=== PATIENT | male | born 1955 | race Caucasian/White ===

== ENCOUNTER 2017-12-15 17:14 | Inpatient (IN) | payer OTHER ==
[~2017-12-15] VITALS: Ht 170.2 cm; Wt 99.8 kg
[~2017-12-15 17:14] MED LIST: BENADRYL ALLERG25 M2 PO; IBUPROFEN600 M1 PO; LEVOTHYROXINE125 MCG PO; LISINOPRIL20 M1 PO; PEPCID20 M1 PO; PREDNISONE20 M1 PO; WELCHOL3.75 GM PO
--- NOTE | 2017-12-15 17:47 | ED NEURO DEFICIT/STROKE ---
History of Present Illness General Chief Complaint: Neuro Symptoms/ Deficit Stated Complaint: NUMBNESS ON RT SIDE OF FACE Source: patient, family, old records Exam Limitations: no limitations Vital Signs & Intake/Output Vital Signs & Intake/Output Vital Signs Date Time Temp Pulse Resp B/P B/P Pulse O2 O2 Flow FiO2 Mean Ox Delivery Rate 12/15 2023 98.0 56 18 157/77 98 Room Air 12/15 1902 58 16 142/88 95 Room Air 12/15 1821 98.4 65 16 163/86 96 Room Air 12/15 1819 Room Air 12/15 1729 97.2 72 18 190/78 98 Room Air Allergies Coded Allergies: NO KNOWN ALLERGIES (05/14/11) Per ER nurse Zohra. -- Giselle 05/06/11 Reconcile Medications Cholecalciferol (Vitamin D3) (Vitamin D) (Unknown Strength) CAPSULE (Unknown Dose) PO DAILY SUPPLEMENT (Reported) Colesevelam HCl (Welchol) 3.75 GRAM POWD.PACK 1 PAC PO DAILY CHOLESTEROL ( Reported) mix with water, or juice Levothyroxine Sodium 125 MCG TABLET 1 TAB PO DAILY AC THYROID (Reported) Lisinopril 20 MG TABLET 1 TAB PO DAILY BP (Reported) [place]-3 Fatty Acids ([place]-3) (Unknown Strength) CAPSULE (Unknown Dose) PO DAILY SUPPLEMENT (Reported) Tamsulosin HCl 0.4 MG CAP.ER.24H 1 CAP PO DAILY PROSTATE (Reported) Ubidecarenone (Co Q-10) (Unknown Strength) CAPSULE (Unknown Dose) PO DAILY SUPPLEMENT (Reported) Triage Note: 62 YEAR OLD MALE STATES THAT LAST PM HE NOTICED THAT HE HAD SOME NUMBNESS IN THE L SIDE OF HIS FACE AND THEN HE STARTED WITH UNABLE TO CLOSE HIS R EYE, PT NOTED WITH R SIDE FACIAL DROOP, CLEAR SPEECH, EQUAL BILATERAL HAND GRASP . PT AMBULATES WITH STEADY GAIT. ALSO STATES THAT HE HAS HAD A STOMACH ACHE ALL DAY. PT VOMITTED UP JUICE WHILE AT TRIAGE AND STATES THAT THE PAIN WENT AWAY. Triage Nurses Notes Reviewed? yes HPI: 62M PMH HTN, HLD, T2DM, no history of afib presenting with right facial droop, inability to full close right eye, left facial numbness, and ataxia falling off to the right since last night. Symptoms were noticed by patient's mother's visiting nurse today and sent to ED. Denies headache, confusion, altered mental status, extremity weakness/numbness, dysphagia. Ate today without difficulty. No history or family history of stroke. No personal history of CVD. Past History Travel History Traveled to [place] past 21 day No Medical History Any Pertinent Medical History? see below for history Neurological: NONE EENT: NONE Cardiovascular: hypertension, hyperlipidemia Respiratory: NONE Gastrointestinal: NONE Hepatic: NONE Renal: NONE Musculoskeletal: NONE Psychiatric: NONE Endocrine: hypothyroidism Blood Disorders: NONE Cancer(s): NONE BATCH DUMPER/Reproductive: NONE Surgical History Surgical History: non-contributory Psychosocial History What is your primary language Estonian Tobacco Use: Never used ETOH Use: denies use Illicit Drug Use: denies illicit drug use Family History Hx Contributory? No Review of Systems Review of Systems Constitutional: Reports: no symptoms. EENTM: Reports: no symptoms. Respiratory: Reports: no symptoms. Cardiovascular: Reports: no symptoms. GI: Reports: no symptoms. Genitourinary: Reports: no symptoms. Musculoskeletal: Reports: no symptoms. Skin: Reports: no symptoms. Neurological/Psychological: Reports: no symptoms. Hematologic/Endocrine: Reports: no symptoms. Immunologic/Allergic: Reports: no symptoms. All Other Systems: Reviewed and Negative Physical Exam Physical Exam General Appearance: well developed/nourished, no apparent distress Head: atraumatic, normal appearance Eyes: Right: other (inability to close, lacrimatio). Bilateral: PERRL, EOMI. Ears, Nose, Throat: normal ENT inspection, moist mucous membrane, hearing grossly normal Neck: normal inspection, supple, full range of motion Respiratory: normal breath sounds, chest non-tender, no respiratory distress Cardiovascular: regular rate/rhythm Gastrointestinal: soft, non-tender Back: normal inspection, normal range of motion Extremities: normal range of motion Psychiatric: awake, alert, oriented x 3 Cranial Nerves: normal hearing, normal speech, PERRL, right facial droop, decreased sensation left face Coordination/Gait: normal finger to nose, Positive Romberg's sign Motor/Sensory: no motor/sensory deficits Reflexes: 2+: knee (R), knee (L). Skin: intact, normal color, warm/dry Core Measures CVA/TIA Diagnosis: Yes NIH Stroke Scale NIH Stroke Scale Response Value LOC Questions answers both correctly 0 LOC Commands obeys both correctly 0 Best Gaze normal 0 Visual Malin no visual loss 0 Facial Paresis complete 3 Motor Arm - Left no drift 0 Motor Arm - Right no drift 0 Motor Leg - Left no drift 0 Motor Leg - Right no drift 0 Limb Ataxia present in one limb 1 Sensory partial loss 1 Best Language no aphasia 0 Dysarthria mild/mod slurring words 1 Extinction and Inattention no neglect 0 Total 6 Date Last Known Well: 12/14/17 Time Last Known Well: 2199 Symptom Start Date: 12/14/17 Symptom Start Time: 2199 Reason tPA not ordered Medical Contraindication Swallow Evaluation Pass Swallow eval date 12/15/17 Swallow eval time 1817 Sepsis Present: No Sepsis Focused Exam Completed? No Progress Differential Diagnosis: acute glaucoma, Nielson's Palsy, drug intoxication, electrolyte imbalance, encephalitis, hypoglycemia, intracranial Hem., intracranial mass/tumor, meningitis, migraine HOLDEN, seizure disorder, stroke, subarachnoid Hem., vertebrobasilar insuff. Plan of Care: Orders Procedure Date/time Status TROPONIN LEVEL 12/15 1745 Complete COMPREHENSIVE METABOLIC PANEL 12/15 1745 Complete CBC WITHOUT DIFFERENTIAL 12/15 1745 Complete EKG 12/15 1745 Active Laboratory Tests 12/15/17 175: Anion Gap 13, Estimated GFR > 60, BUN/Creatinine Ratio 18.9, Glucose 100 H, Calcium 9.4, Total Bilirubin 0.5, AST 39, ALT 54, Alkaline Phosphatase 63, Troponin I < 0.01, Total Protein 7.3, Albumin 4.5, Globulin 2.8, Albumin/ Globulin Ratio 1.6, CBC w Diff NO MAN DIFF REQ, RBC 4.86, MCV 96.8 H, MCH 31.5 H, MCHC 32.5 L, RDW 14.9 H, MPV 10.3, Gran % 71.6, Lymphocytes % 20.2 L, Monocytes % 6.2, Eosinophils % 1.7, Basophils % 0.3, Absolute Granulocytes 7.3 H, Absolute Lymphocytes 2.1, Absolute Monocytes 0.6, Absolute Eosinophils 0.2, Absolute Basophils 0 Diagnostic Imaging: Viewed by Me: CT Scan. Discussed w/RAD: CT Scan. Radiology Impression: PATIENT: ABHIJEET GROVES PRESENT AGE: 62 PATIENT ACCOUNT NO: [id number] : 56 LOCATION: [facility] ORDERING PHYSICIAN: Loree Simmons MD SERVICE DATE: 12/15/17-1745 EXAM TYPE : CAT - CT HEAD ANGIOGRAM; CT NECK ANGIOGRAM EXAMINATION: CTA HEAD AND CTA NECK WITH CONTRAST. CLINICAL INFORMATION: Right facial droop. COMPARISON: CT brain performed at 5:41 PM. TECHNIQUE: Following intravenous administration of 100 mL Optiray 320, CTA neck and brain was obtained. Multiple within sagittal and coronal and 3-D reconstructions of neck and brain were obtained. DLP 465. FINDINGS: CTA NECK: The thoracic aorta is of normal caliber without any aneurysmal dilatation. Visualized pulmonary artery appears normal caliber as well. There is normal branching of thoracic arch into right brachiocephalic, left common and left subclavian arteries which are widely patent. Mild atherosclerotic calcification seen at the origin of these branches but no narrowing noted. The right common carotid artery is widely patent. There is mild atherosclerotic calcified plaque at the origin of right common carotid artery but widely patent. Carotid bulb, right internal and external carotid arteries are patent throughout the neck. The left common carotid artery, and the bifurcation appears widely patent. There is atherosclerotic calcification left carotid bulb and proximal ICA without significant stenosis. The left internal carotid artery is widely patent in the neck. Both vertebral arteries are codominant and patent at the origin and throughout the course in the neck. CTA BRAIN: Both vertebral arteries merge into basilar artery which appears normal caliber. The basilar artery terminates in symmetrical posterior cerebral artery. The superior cerebellar arteries are widely patent. There is a single left posterior inferior cerebellar artery which appears patent. Anteriorly both internal carotid arteries are patent through the petrous, cavernous and supraclinoid segments and bifurcates normally into anterior and middle cerebral arteries. They appear symmetrical. Both middle cerebral arteries bifurcate into anterior and middle temporal branches. There is no atherosclerotic narrowing, thrombosis or asymmetry in the vascular filling. The peripheral capillary filling appears symmetrical and normal. No avascular zone is seen. There is no evidence of aneurysm or AV malformation. CT NECK: Visualized lung apices are clear. No abnormality seen in the superior mediastinum. The central trachea is widely patent. There is a subtle hypodensity or artifact seen in the right mid thyroid lobe. Otherwise the thyroid glands are symmetrical. Visualized bilateral submandibular and parotid glands are symmetrical. Small shotty lymph nodes are seen in the neck. No abnormal mass seen. Both jugular veins are nonopacified but appear codominant. There is degenerative arthritic changes throughout cervical spine with loss of disc height C3-C4 through C6-C7 disc levels. No maxillofacial or nasal bony abnormality seen. There is a polyp or retention cyst right maxillary sinus. Rest of the paranasal sinuses are clear. There is right mastoidectomy changes with soft tissue thickening. Mild opacified remaining right mastoid sinuses seen. The left mastoid sinus is clear. CT BRAIN: There is no enhancing mass or mass effect. No edema seen. No midline shift. The lateral ventricles are symmetrical and normal. IMPRESSION: Unremarkable CTA neck and CTA brain. Right mastoidectomy changes. There is a moderate soft tissue density in the right mastoid sinus likely recurrent inflammatory change or postop which could attribute to right facial weakness or droop. Correlate clinically and surgical history. Moderate size polyp or retention cyst right maxillary sinus. No enhancing mass in the brain or or neck or abnormal lymphadenopathy in the neck DICTATED BY: Martin Bruce MD DATE/TIME DICTATED:12/15/172013 RAPID EXTRACTOR OPERATOR:DAVID DATE/TIME TRANSCRIBED:12/15/172013 Initial ED EKG: normal QRS complex, normal sinus rhythm, no ST T wave changes Departure Departure Disposition: HOME OR SELF CARE Condition: Stable Clinical Impression Primary Impression: Acute CVA (cerebrovascular accident) Referrals: Darryl Pope MD (PCP/Family) Departure Forms: Customer Survey General Discharge Information Admission Note Spoke With: Alesha Berrios MD Documentation of Exam: Documentation of any treatments & extenuating circumstances including Concerns Regarding Discharge (functional status, medication knowledge or non-compliance, living conditions, etc.) that warrant an admission rather than observation: acute onset right facial droop and ataxia consistent with acute CVA, will admit for telemetry monitoring, neurology consult, echocardiogram, carotid doppler, MRI.
[2017-12-15 18:03] LABS: ABSOLUTE BASOPHIL COUNT 0 /CUMM (0.0-0.2); ABSOLUTE EOSINOPHIL COUNT 0.2 /CUMM (0.0-0.7); ABSOLUTE GRANULOCYTE CT 7.3 /CUMM (1.4-6.5); ABSOLUTE LYMPH COUNT 2.1 /CUMM (1.2-3.4); ABSOLUTE MONOCYTE COUNT 0.6 /CUMM (0.10-0.60); BASOPHIL % 0.3 % (0.0-2.0); EOSINOPHIL % 1.7 % (0-5); GRANULOCYTE % 71.6 % (42.2-75.2); MEAN CORPUSCULAR HGB 31.5 PG (27.0-31.0); MEAN CORPUSCULAR HGB CONC 32.5 G/DL (33.0-37.0); MEAN CORPUSCULAR VOLUME 96.8 FL (80.0-94.0); MEAN PLATELET VOLUME 10.3 FL (7.4-10.4); PLATELET COUNT 181 /CUMM (130-400); RBC DISTRIBUTION WIDTH 14.9 % (11.5-14.5); RED BLOOD CELL CT 4.86 /CUMM (4.70-6.10); WHITE BLOOD CELL COUNT 10.3 /CUMM (4.8-10.8)
--- NOTE | 2017-12-15 18:10 | CT SCAN REPORT ---
EXAMINATION: CT HEAD WITHOUT CONTRAST CLINICAL INFORMATION: Right-sided facial droop. COMPARISON: None TECHNIQUE: Contiguous axial imaging was performed from the skull base to vertex without intravenous administration of contrast. DLP: 620 mGy-cm FINDINGS: There is no evidence of acute intracranial hemorrhage or territorial infarction. No abnormal mass effect or midline shift is seen. Woods to white matter differentiation is well preserved. No extra-axial fluid collections are identified. The ventricles are normal in size. There is no abnormal attenuation within the brain parenchyma. The osseous structures and soft tissues are normal. There is a right mastoidectomy changes with soft tissue density likely postop. No fluid is seen in the right middle ear. The left mastoid sinus and rest of the paranasal sinuses are well-aerated. IMPRESSION: No acute intracranial process seen.
[2017-12-15] MEDS ORDERED: VITAMIN D2000 UNIT PO (18:13)
[2017-12-15] MEDS ORDERED: OMEGA-31000 M1 PO (18:13)
[2017-12-15] MEDS ORDERED: CO Q-10200 MG PO (18:14)
[2017-12-15] MEDS ORDERED: TAMSULOSIN HCL0.4 M1 PO (18:14)
--- NOTE | 2017-12-15 20:38 | CT SCAN REPORT ---
EXAMINATION: CTA HEAD AND CTA NECK WITH CONTRAST. CLINICAL INFORMATION: Right facial droop. COMPARISON: CT brain 12/15/2017 performed at 5:41 PM. TECHNIQUE: Following intravenous administration of 100 mL Optiray 320, CTA neck and brain was obtained. Multiple within sagittal and coronal and 3-D reconstructions of neck and brain were obtained. DLP 465. FINDINGS: CTA NECK: The thoracic aorta is of normal caliber without any aneurysmal dilatation. Visualized pulmonary artery appears normal caliber as well. There is normal branching of thoracic arch into right brachiocephalic, left common and left subclavian arteries which are widely patent. Mild atherosclerotic calcification seen at the origin of these branches but no narrowing noted. The right common carotid artery is widely patent. There is mild atherosclerotic calcified plaque at the origin of right common carotid artery but widely patent. Carotid bulb, right internal and external carotid arteries are patent throughout the neck. The left common carotid artery, and the bifurcation appears widely patent. There is atherosclerotic calcification left carotid bulb and proximal ICA without significant stenosis. The left internal carotid artery is widely patent in the neck. Both vertebral arteries are codominant and patent at the origin and throughout the course in the neck. CTA BRAIN: Both vertebral arteries merge into basilar artery which appears normal caliber. The basilar artery terminates in symmetrical posterior cerebral artery. The superior cerebellar arteries are widely patent. There is a single left posterior inferior cerebellar artery which appears patent. Anteriorly both internal carotid arteries are patent through the petrous, cavernous and supraclinoid segments and bifurcates normally into anterior and middle cerebral arteries. They appear symmetrical. Both middle cerebral arteries bifurcate into anterior and middle temporal branches. There is no atherosclerotic narrowing, thrombosis or asymmetry in the vascular filling. The peripheral capillary filling appears symmetrical and normal. No avascular zone is seen. There is no evidence of aneurysm or AV malformation. CT NECK: Visualized lung apices are clear. No abnormality seen in the superior mediastinum. The central trachea is widely patent. There is a subtle hypodensity or artifact seen in the right mid thyroid lobe. Otherwise the thyroid glands are symmetrical. Visualized bilateral submandibular and parotid glands are symmetrical. Small shotty lymph nodes are seen in the neck. No abnormal mass seen. Both jugular veins are nonopacified but appear codominant. There is degenerative arthritic changes throughout cervical spine with loss of disc height C3-C4 through C6-C7 disc levels. No maxillofacial or nasal bony abnormality seen. There is a polyp or retention cyst right maxillary sinus. Rest of the paranasal sinuses are clear. There is right mastoidectomy changes with soft tissue thickening. Mild opacified remaining right mastoid sinuses seen. The left mastoid sinus is clear. CT BRAIN: There is no enhancing mass or mass effect. No edema seen. No midline shift. The lateral ventricles are symmetrical and normal. IMPRESSION: Unremarkable CTA neck and CTA brain. Right mastoidectomy changes. There is a moderate soft tissue density in the right mastoid sinus likely recurrent inflammatory change or postop which could attribute to right facial weakness or droop. Correlate clinically and surgical history. Moderate size polyp or retention cyst right maxillary sinus. No enhancing mass in the brain or or neck or abnormal lymphadenopathy in the neck
--- NOTE | 2017-12-15 21:21 | History & Physical ---
Joshua Olea MD 12/15/172119: General Information and HPI MD Statement: I have seen and personally examined ABHIJEET GROVES and documented this H&P. The patient is a 62 year old M who presented with a patient stated chief complaint of [left-sided facial numbness, right-sided facial droop]. Source of Information: patient Exam Limitations: no limitations History of Present Illness: Patient is a 62-year-old male with a PMH significant for HTN, HLD, hypothyroidism who presents complaining of left facial numbness and right sided facial droop. He states these symptoms began the evening prior to admission and has not resolved. Claims he went to sleep and upon seeing that the symptoms have not abated she decided to come to the ED. He has had a productive cough for the last several days she has been treated with NyQuil and DayQuil. He has had associated nausea vomiting, lightheadedness since the onset of his symptoms. He also reports keep instability in which she leans towards the right while walking and endorses blurry patient. He denies any weakness, tingling or numbness in his extremities. He denies any dysarthria or aphasia. Allergies/Medications Allergies: Coded Allergies: NO KNOWN ALLERGIES (05/14/11) Per ER nurse Zohra. -- Giselle 05/06/11 Home Med list Cholecalciferol (Vitamin D3) (Vitamin D) (Unknown Strength) CAPSULE (Unknown Dose) PO DAILY SUPPLEMENT (Reported) Colesevelam HCl (Welchol) 3.75 GRAM POWD.PACK 1 PAC PO DAILY CHOLESTEROL ( Reported) mix with water, or juice Levothyroxine Sodium 125 MCG TABLET 1 TAB PO DAILY AC THYROID (Reported) Lisinopril 20 MG TABLET 1 TAB PO DAILY BP (Reported) Platinum-3 Fatty Acids (Platinum-3) (Unknown Strength) CAPSULE (Unknown Dose) PO DAILY SUPPLEMENT (Reported) Tamsulosin HCl 0.4 MG CAP.ER.24H 1 CAP PO DAILY PROSTATE (Reported) Ubidecarenone (Co Q-10) (Unknown Strength) CAPSULE (Unknown Dose) PO DAILY SUPPLEMENT (Reported) Past History Travel History Traveled to [place] past 21 day No Medical History Neurological: NONE EENT: NONE Cardiovascular: hypertension, hyperlipidemia Respiratory: NONE Gastrointestinal: NONE Hepatic: NONE Renal: NONE Musculoskeletal: NONE Psychiatric: NONE Endocrine: hypothyroidism Blood Disorders: NONE Cancer(s): NONE FAMILY RESOURCE SPECIALIST/Reproductive: NONE Surgical History Surgical History: mastoid surgery Past Family/Social History Family History Relations & Conditions if any Relation not specified for: *No pertinent family history Psychosocial History Where do you live? Home Who Do You Live With? parent, brother Primary Language: [place] Smoking Status: Current Everyday Smoker ETOH Use: denies use, heavy use Illicit Drug Use: denies illicit drug use, marijuana Functional Ability ADLs Independent: dressing, eating, toileting, bathing. Ambulation: independent Review of Systems Review of Systems Constitutional: Denies: chills, diaphoresis, fever. EENTM: Reports: blurred vision. Denies: double vision, visual changes. Cardiovascular: Denies: chest pain, orthopena, palpitations, syncope. Respiratory: Reports: cough, sputum production. Denies: short of breath, wheezing. GI: Reports: nausea, vomiting. Denies: abdominal pain, melena, bloody stool. Genitourinary: Reports: dysuria (intermitent). Musculoskeletal: Reports: no symptoms. Skin: Reports: no symptoms. Neurological/Psychological: Reports: ataxia, headache, numbness, tingling. Denies: weakness. Exam & Diagnostic Data Last 24 Hrs of Vital Signs/I&O Vital Signs Date Time Temp Pulse Resp B/P B/P Pulse O2 O2 Flow FiO2 Mean Ox Delivery Rate 12/16 0540 98.6 57 20 147/82 94 12/16 0414 97.5 58 18 157/70 96 Room Air 12/16 0300 98.1 64 16 157/75 98 Room Air 12/15 2305 56 16 157/72 94 Room Air 12/15 2024 98.0 56 18 157/77 98 Room Air 12/15 1902 58 16 142/88 95 Room Air 12/15 1821 98.4 65 16 163/86 96 Room Air 12/15 1819 Room Air 12/15 1729 97.2 72 18 190/78 98 Room Air Intake & Output 12/16 1600 12/16 0800 12/16 0000 Intake Total 200 0 Output Total Balance 200 0 Intake, IV 200 Intake, Oral 0 Patient 220 lb 220 lb Weight Weight Reported by Patient Measurement Method Physical Exam General Appearance Alert, Oriented X3, Cooperative, No Acute Distress Skin Temp/Moisture Exam: Warm/Dry Cardiovascular Regular Rate, Normal S1, Normal S2, No Murmurs Lungs Clear to Auscultation, Normal Air Movement Abdomen Normal Bowel Sounds, Soft, No Tenderness Neurological Normal Speech, Strength at 5/5 X4 Ext, Sensation Intact, R sided facial droop, unable to close R eye fully, unable to R puff out cheek, unable to wrinkle R side of forehead, asymmetrical smile with R side of mouth angling down, no tongue or uvular deviation, rightward nystagmus whith leftward gaze, sensation intact on face bilaterally, patient seemed hesitant while testing his gait and had a mild limp of the right leg Extremities No Clubbing, No Cyanosis, No Edema Last 24 Hrs of Labs/[place]: Laboratory Tests 12/16/17 0600: Triglycerides Cancelled, Cholesterol Cancelled, LDL Cholesterol, Calc Cancelled, HDL Cholesterol Cancelled, Cholesterol/HDL Ratio Cancelled 12/16/17 0519: Anion Gap 8, Estimated GFR > 60, BUN/Creatinine Ratio 20.0, Troponin I < 0.01, Triglycerides 101, Cholesterol 216 H, LDL Cholesterol, Calc 154 H, HDL Cholesterol 42, Cholesterol/HDL Ratio 5 H 12/16/17 0515: CBC w Diff NO MAN DIFF REQ, RBC 4.59 L, MCV 97.2 H, MCH 32.1 H, MCHC 33.1, RDW 14.9 H, MPV 10.2, Gran % 71.8, Lymphocytes % 19.0 L, Monocytes % 6.5, Eosinophils % 2.1, Basophils % 0.6, Absolute Granulocytes 7.2 H, Absolute Lymphocytes 1.9, Absolute Monocytes 0.6, Absolute Eosinophils 0.2, Absolute Basophils 0.1 12/16/17 0257: Methadone Screen Cancelled, Barbiturate Screen Cancelled, Ur Phencyclidine Scrn Cancelled, Amphetamines Screen Cancelled, U Benzodiazepines Scrn Cancelled, Urine Cocaine Screen Cancelled, Urine Cannabis Screen Cancelled 12/16/17 0015: Urine Opiates Screen < 100.00, Methadone Screen < 40, Barbiturate Screen < 60, Ur Phencyclidine Scrn < 6.00, Amphetamines Screen < 100, U Benzodiazepines Scrn < 85, Urine Cocaine Screen < 50, Urine Cannabis Screen 23.10, Urinalysis LIGHT H, Urine Color YEL, Urine Clarity CLEAR, Urine pH 7.0, Ur Specific Alexis 1.010 , Urine Protein TRACE H, Urine Ketones NEG, Urine Nitrite NEG, Urine Bilirubin NEG, Urine Urobilinogen 0.2, Ur Leukocyte Esterase NEG, Ur Microscopic SEDIMENT EXAMINED, Urine WBC RARE, Ur Epithelial Cells RARE, Urine Bacteria RARE H, Urine Mucus FEW, Urine Hemoglobin NEG, Urine Glucose NEG 12/15/17 1752: Anion Gap 13, Estimated GFR > 60, BUN/Creatinine Ratio 18.9, Glucose 100 H, Calcium 9.4, Total Bilirubin 0.5, AST 39, ALT 54, Alkaline Phosphatase 63, Troponin I < 0.01, Total Protein 7.3, Albumin 4.5, Globulin 2.8, Albumin/ Globulin Ratio 1.6, TSH 7.610 H, CBC w Diff NO MAN DIFF REQ, RBC 4.86, MCV 96.8 H, MCH 31.5 H, MCHC 32.5 L, RDW 14.9 H, MPV 10.3, Gran % 71.6, Lymphocytes % 20.2 L, Monocytes % 6.2, Eosinophils % 1.7, Basophils % 0.3, Absolute Granulocytes 7.3 H, Absolute Lymphocytes 2.1, Absolute Monocytes 0.6, Absolute Eosinophils 0.2, Absolute Basophils 0 Microbiology 12/15 2206 NASOPHARYN: Influenza Virus A & B Rapid Smear - COMP Diagnostic Data Other Results CT head No acute intracranial process seen CTA head and neck Unremarkable CTA neck and CTA brain. Right mastoidectomy changes. There is a moderate soft tissue density in the right mastoid sinus likely recurrent inflammatory change or postop which could attribute to right facial weakness or droop. Correlate clinically and surgical history. Moderate size polyp or retention cyst right maxillary sinus. No enhancing mass in the brain or or neck or abnormal lymphadenopathy in the neck Assessment/Plan Assessment: Patient is a 62-year-old male with a PMH significant for HTN, HLD, hypothyroidism who presents complaining of left facial numbness and right sided facial droop. Problem list #CVA versus Nielson's palsy #Chronic medical problems including hypothyroidism, hypertension, hyperlipidemia Plan -Admit to telemetry floor -continuous telemetry monitoring -Serial neuro checks -Nephrology consult has been placed -MRI head -Follow-up lipid profile, TSH, and UA -Start Prednisone -Nothing by mouth pending swallow evaluation -Hold antihypertensives -Serial troponins and EKG -Echocardiogram -PT and OT evaluation -DVT prophylaxis: Lovenox, ALPS -CODE STATUS: Full code As Ranked By This Provider Problem List: 1. Acute CVA (cerebrovascular accident) Core Measures/Misc (07/29) Acute Coronary Syndrome ACS Diagnosis: No Congestive Heart Failure Congestive Heart Failure Diagnosis No Cerebrovascular Accident CVA/TIA Diagnosis: Yes NIH Stroke Scale: Total 2 Date Last Known Well: 12/14/17 Time Last Known Well: 2199 Symptom Start Date: 12/14/17 Symptom Start Time: 2200 Swallow Evaluation Pass VTE (View Protocol) VTE Risk Factors Age>40 No Mechanical VTE Prophylaxis d/t N/A MechProphylax Ordered No VTE Pharm Prophylaxis d/t NA PharmProphylax ordered Sepsis (View protocol) Sepsis Present: No AgustinaVenkateshsrinath 12/16/17 0439: Attending MD Review Statement Attending Statement Attending MD Statement: examined this patient, discuss w/resident/PA/SEWER PIPE LAYER, agreed w/resident/PA/SEWER PIPE LAYER, reviewed EMR data (avail), reviewed images, amended to note Attending Assessment/Plan: CC: Left facial weakness PMH: Hypothyroidism, hypertension, BPH, HLD Patient came to ER for right facial weakness. His symptoms started yesterday night with numbness of left side of the face followed by unable to close his right eye and the right side facial drooping. He did not notice any changes in his speech. Since last 3-4 days patient has been noticing some URI symptoms with productive cough, not feeling well and he tried to take some medications like NyQuil with some relief. he was not feeling himself and had to come back from work. Sunday night he noticed above-mentioned symptoms of left-sided numbness and right-sided facial weakness, unable to close eye, facial weakness, he slept and woke up with worsening of such symptoms. Followed by it during the daytime she he also noticed blurry vision, mild headache on the right side, we abdominal pain which is now relieved after an episode of vomiting in ER. Patient has mild burgeoning while urination but otherwise denies any chest pain, chest tightness, palpitations, presyncope, syncope, seizure-like activity, any other neurological weakness. Vitals: Afebrile, pulse 72, RR 18, blood pressure 190/78, saturating 95% on room air On exam: A O 3, cooperative, no acute distress, neck supple, JVD normal, no lymphadenopathy, mucosa moist, right facial weakness, unable to wrinkle forehead , unable to close eyes, unable to puff, angle of mouth deviated, nystagmus on extreme left gaze past component towards right, Romberg's negative, cerebellar signs negative, mild right swaying on gait, strength 5/5 all extremities, reflexes normal, no pronator drift, no dependent edema, no obvious skin rashes or inflammation CVS: S1-S2, RRR. RS: Clear to auscultate bilaterally. Abdomen: Soft, NT, ND, bowel sounds present. Labs: WBC 10.3, hemoglobin 15.3, hematocrit 47.0, platelet 181, MCV 96.8, neutrophils 70%, lymphocytes 20%, sodium 146, potassium 4.3, chloride 105, bicarbonate 28, BUN 17, creatinine 0.9, glucose 100, calcium 9.4, LFT unremarkable, troponin less than 0.01 CT head:No acute intracranial process seen CTA head and neck: Unremarkable Right mastoidectomy changes. There is a moderate soft tissue density in the right mastoid sinus likely recurrent inflammatory change or postop which could attribute to right facial weakness or droop. Correlate clinically and surgical history. ECG: No acute changes Assessment and plan 62-year-old male with above-mentioned past medical history presented in ER for right facial weakness since Sunday night, gradually worsening now with mild blurry vision, vague abdominal pain which is relieved by vomiting. On examination right facial weakness, unable to wrinkle forehead, unable to close eyes, unable to puff, angle of mouth deviated, nystagmus on extreme left gaze past component towards right, Romberg's negative, cerebellar signs negative, mild right swaying on gait, strength 5/5 all extremities, reflexes normal. CT head did not show any acute stroke, CTA head and neck unremarkable, even though CT scan mentions about moderate soft tissue density in the right mastoid sinus likely recurrent inflammatory changes. Patient underwent mastoid surgery on right side in 1984 and has hearing problem since then but did not notice any worsening of pain in the mastoid area, no tinnitus, any worsened hearing. The facial weakness findings are more acute, could be secondary to Nielson's palsy but posterior circulation infarct could not be ruled out. His unsteady gait and nystagmus goes against Nielson's palsy but we would get neurology opinion for further evaluation. + Right facial weakness : CVA versus Nielson's palsy + Hypothyroidism, hypertension, BPH, HLD, current smoker, significant alcohol history - Admit to telemetry - Continuous telemetry monitoring - Serial troponin and EKG - MRI brain - 2-D echocardiogram in a.m. - DVT prophylaxis - Obtain lipid profile - Continue aspirin and high intensity statin - Neurology consult - Serial neuro checks - Adequate pain control - Prednisone 40 mg daily - Swallow evaluation - Permissive hypertension - Hold off antihypertensive - OT PT evaluation - Check a U tox and TSH Vanessa Florez MD 12/16/17 0503: Resident Review Statement Resident Statement: examined this patient, discussed with internet and e business project manager Other Findings: H: Mr. Groves is a 62-year-old gentleman with past medical history of hypertension and hyperlipidemia who presented to the emergency department complaining of right facial abnormalities as well as left facial numbness. Patient states that's early on last year he received the flu shot and felt woozy since then that patient reports that his health has been declinig. He states over the course of the week he has felt increasingly lethargic. On Sunday patient states he felt nauseous and off baseline and was unable to continue working. He is employed in a corporate job. He also endorses a cough productive of mild phlegm. He reports he's been using increased amount of NyQuil and DayQuil. Mr Groves also endorses a stomachache and states that he had one episode of nonbilious non-bloody vomitus in the emergency department. This morning the visiting nurse who comes to see his mother noted that the patient had some facial abnormalities and requested him to come to the emergency department. Denies any diploplia. R: He denies any fever, chills. E: Vitals: 97.2, RR 18, blood pressure 190/78, heart rate 72. General Appearance: well developed/nourished, no apparent distress, alert and oriented. Head: RIght Facial droop noted, facial weakness noted, Impaired Right Brow Wrinkle , Left beating Horizonatal Nystagmus noted. Tongue Midline. No Uvula Deviation. Strength 5/5. No Visual Field defects noted. Ears, Nose, Throat: hearing grossly normal Neck: supple, full range of motion Respiratory:Chest non-tender, no respiratory distress. Cardiovascular: RRR, no murmurs gallops or rubs. Gastrointestinal: normal bowel sounds, soft, non-tender. Back: normal inspection, normal range of motion Extremities: normal inspection, normal range of motion. Psych: alert, oriented x 3 Skin: warm/dry Narrow Based Gait L: WBC 10.3. H&H 15.3 and 47. Platelets 181. Sodium 146. Potassium 4.3. BUN 17 Cr: 0.9. Troponin 0.01 I: SERVICE DATE: 12/15/17 EXAM TYPE: CAT - CT HEAD WO IV CONTRAST IMPRESSION: No acute intracranial process seen. SERVICE DATE: 12/15/17 EXAM TYPE: CAT - CT HEAD ANGIOGRAM; CT NECK ANGIOGRAM CT BRAIN: There is no enhancing mass or mass effect. No edema seen. No midline shift. The lateral ventricles are symmetrical and normal. IMPRESSION: Unremarkable CTA neck and CTA brain. Right mastoidectomy changes. There is a moderate soft tissue density in the right mastoid sinus likely recurrent inflammatory change or postop which could attribute to right facial weakness or droop. Correlate clinically and surgical history. Moderate size polyp or retention cyst right maxillary sinus. No enhancing mass in the brain or or neck or abnormal lymphadenopathy in the neck A/P Mr. Groves is a 62-year-old gentleman with past medical history of hypertension and hyperlipidemia who presented to the ED compalining of left facial numbness and a right facial droop. We will admit him to telemetry and evaluate for idipathic facial paralysis vs a CVA. #CVA vs. [place] Palsy. #History of hypertension #History of hyperlipidemia #Hypothyroidism. Admit to telemetry. Rule out ACS with serial troponins EKG. MRI w/o MANGO 2-D echocardiogram in a.m. Patient has been started on a statin and aspirin. Prednisone 40 mg daily. Urine toxicology. Neurology consultation in a.m. Thyroid Studies. Lipid Panel. PT/OT Evaluation. Patient is a full code. Diet is heart healthy. DVT prophylaxis Enoxaparin
--- NOTE | 2017-12-16 04:41 | Admission Certification ---
Admission Certification Certification Statement - As attending physician, I certify that at the time of - admission, based on clinical presentation, severity of - symptoms, need for further diagnostic testing and - therapeutic interventions, and risk of adverse outcomes - without in-hospital treatment, in my clinical assessment, - this patient requires an acute hospital stay for a minimum - of two nights or longer. I have also considered psychsocial - factors such as support system, advanced age, financial - issues, cognitive issues, and failed out-patient treatments, - past re-admission history, safety of patient, and lack of - compliance as applicable. Specific rationale supporting this admission is: CVA versus Nielson's palsy
[2017-12-16 05:31] LABS: ABSOLUTE BASOPHIL COUNT 0.1 /CUMM (0.0-0.2); ABSOLUTE EOSINOPHIL COUNT 0.2 /CUMM (0.0-0.7); ABSOLUTE GRANULOCYTE CT 7.2 /CUMM (1.4-6.5); ABSOLUTE LYMPH COUNT 1.9 /CUMM (1.2-3.4); ABSOLUTE MONOCYTE COUNT 0.6 /CUMM (0.10-0.60); BASOPHIL % 0.6 % (0.0-2.0); EOSINOPHIL % 2.1 % (0-5); GRANULOCYTE % 71.8 % (42.2-75.2); HEMATOCRIT 44.6 % (42-52); MEAN CORPUSCULAR HGB 32.1 PG (27.0-31.0); MEAN CORPUSCULAR HGB CONC 33.1 G/DL (33.0-37.0); MEAN CORPUSCULAR VOLUME 97.2 FL (80.0-94.0); MEAN PLATELET VOLUME 10.2 FL (7.4-10.4); PLATELET COUNT 172 /CUMM (130-400); RBC DISTRIBUTION WIDTH 14.9 % (11.5-14.5); RED BLOOD CELL CT 4.59 /CUMM (4.70-6.10)
[2017-12-16 05:40] VITALS: BP 147/82
--- NOTE | 2017-12-16 10:06 | PN- Housestaff ---
Arielle SEXTON,Carolyn 12/16/17 1006: Subjective Follow-up For: 1. 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 Chronic medical problems including hypothyroidism, hypertension, hyperlipidemia Subjective: Patient was seen and examined. Patient states he is feeling nauseous. Had some juice and crackers with speech and swallow therapist which he states he was able to eat with no issues however felt nauseous afterwards and vomitted stomach contents. Patient states he has some abdominal discomfort. Denies pain. Patient notes he had the right facial droop since 2/3 morning and came to the hospital in the afternoon. Denies any facial numbness. Denies weakness or paralysis in his extremities. Denies headache or visual disturbances. Denies chest pain, palpitation or SOB. Patient states he drinks alcohol - 3 beers every other day and 5 shots of whisky per week. States this last drink was Sunday (4 days prior). Currently denies any tremors, sweats, palpitations, headache, visual or auditory hallucinations. No acute events overnight. Review of Systems Constitutional: Reports: no symptoms. Cardiovascular: Reports: no symptoms. Respiratory: Reports: no symptoms. Gastrointestinal: Reports: no symptoms. Genitourinary: Reports: no symptoms. Neurological/Psychological: Reports: see HPI. Objective Last 24 Hrs of Vital Signs/I&O Vital Signs Date Time Temp Pulse Resp B/P B/P Pulse O2 O2 Flow FiO2 Mean Ox Delivery Rate 12/16 0800 96 Room Air 12/16 0540 98.6 57 20 147/82 94 12/16 0414 97.5 58 18 157/70 96 Room Air 12/16 0300 98.1 64 16 157/75 98 Room Air 12/15 2305 56 16 157/72 94 Room Air 12/15 2024 98.0 56 18 157/77 98 Room Air 12/15 1902 58 16 142/88 95 Room Air 12/15 1821 98.4 65 16 163/86 96 Room Air 12/15 1819 Room Air 12/15 1729 97.2 72 18 190/78 98 Room Air Intake & Output 12/16 1600 12/16 0800 02/ 0000 Intake Total 200 0 Output Total Balance 200 0 Intake, IV 200 Intake, Oral 0 Patient 220 lb 220 lb Weight Weight Reported by Patient Measurement Method Physical Exam General Appearance: Alert, Oriented X3, Cooperative, No Acute Distress Skin Temp/Moisture Exam: Warm/Dry HEENT: Atraumatic, PERRLA, EOMI, Mucous Membr. moist/pink Cardiovascular: Regular Rate, Normal S1, Normal S2 Lungs: Clear to Auscultation, Normal Air Movement Abdomen: Normal Bowel Sounds, Soft, No Tenderness Neurological: Normal Speech, Strength at 5/5 X4 Ext, Normal Tone, Sensation Intact, R sided facial droop, unable to fully close R eye or wrinkle forehead aviva, unable to close R eye fully, no tongue or uvular deviation, rightward nystagmus whith leftward gaze Extremities: No Clubbing, No Cyanosis, No Edema, Normal Pulses, No Tenderness/ Swelling Current Medications: Current Medications Sig/Sal Start time Last Medication Dose Route Stop Time Status Admin Aspirin 81 MG DAILY 12/16 1000 AC 12/16 PO 0925 Aspirin 81 MG ONCE ONE 12/16 0115 DC PO 12/16 0116 Aspirin 0 .STK-MED ONE 12/15 1808 DC PO Aspirin Buffered 81 MG ONCE ONE 12/15 1800 DC 12/15 PO 12/15 1801 1821 Atorvastatin Calcium 80 MG 1700 12/16 0200 AC PO Enoxaparin Sodium 40 MG DAILY 12/16 1000 AC 12/16 SC 0925 Nicotine 14 MG DAILY 12/16 1117 AC TOP Ondansetron HCl 4 MG ONCE ONE 12/16 0745 DC 12/16 IV 12/16 0746 0749 Ondansetron HCl 4 MG ONCE ONE 12/15 1830 DC 12/15 IV 12/15 1831 1902 Prednisone 40 MG DAILY 12/16 0400 AC 12/16 PO 0925 Sodium Chloride 1,000 ML Q10H 12/16 0300 AC 12/16 IV 12/16 1259 0320 Last 24 Hrs of Lab/[place] Results Last 24 Hrs of Labs/Mics: Laboratory Tests 12/16/17 0600: Triglycerides Cancelled, Cholesterol Cancelled, LDL Cholesterol, Calc Cancelled, HDL Cholesterol Cancelled, Cholesterol/HDL Ratio Cancelled 12/16/17 0519: Anion Gap 8, Estimated GFR > 60, BUN/Creatinine Ratio 20.0, Troponin I < 0.01, Triglycerides 101, Cholesterol 216 H, LDL Cholesterol, Calc 154 H, HDL Cholesterol 42, Cholesterol/HDL Ratio 5 H 12/16/17 0515: CBC w Diff NO MAN DIFF REQ, RBC 4.59 L, MCV 97.2 H, MCH 32.1 H, MCHC 33.1, RDW 14.9 H, MPV 10.2, Gran % 71.8, Lymphocytes % 19.0 L, Monocytes % 6.5, Eosinophils % 2.1, Basophils % 0.6, Absolute Granulocytes 7.2 H, Absolute Lymphocytes 1.9, Absolute Monocytes 0.6, Absolute Eosinophils 0.2, Absolute Basophils 0.1 12/16/17 0257: Methadone Screen Cancelled, Barbiturate Screen Cancelled, Ur Phencyclidine Scrn Cancelled, Amphetamines Screen Cancelled, U Benzodiazepines Scrn Cancelled, Urine Cocaine Screen Cancelled, Urine Cannabis Screen Cancelled 12/16/17 0015: Urine Opiates Screen < 100.00, Methadone Screen < 40, Barbiturate Screen < 60, Ur Phencyclidine Scrn < 6.00, Amphetamines Screen < 100, U Benzodiazepines Scrn < 85, Urine Cocaine Screen < 50, Urine Cannabis Screen 23.10, Urinalysis LIGHT H, Urine Color YEL, Urine Clarity CLEAR, Urine pH 7.0, Ur Specific [place] 1.010 , Urine Protein TRACE H, Urine Ketones NEG, Urine Nitrite NEG, Urine Bilirubin NEG, Urine Urobilinogen 0.2, Ur Leukocyte Esterase NEG, Ur Microscopic SEDIMENT EXAMINED, Urine WBC RARE, Ur Epithelial Cells RARE, Urine Bacteria RARE H, Urine Mucus FEW, Urine Hemoglobin NEG, Urine Glucose NEG 12/15/17 1752: Anion Gap 13, Estimated GFR > 60, BUN/Creatinine Ratio 18.9, Glucose 100 H, Calcium 9.4, Total Bilirubin 0.5, AST 39, ALT 54, Alkaline Phosphatase 63, Troponin I < 0.01, Total Protein 7.3, Albumin 4.5, Globulin 2.8, Albumin/ Globulin Ratio 1.6, TSH 7.610 H, CBC w Diff NO MAN DIFF REQ, RBC 4.86, MCV 96.8 H, MCH 31.5 H, MCHC 32.5 L, RDW 14.9 H, MPV 10.3, Gran % 71.6, Lymphocytes % 20.2 L, Monocytes % 6.2, Eosinophils % 1.7, Basophils % 0.3, Absolute Granulocytes 7.3 H, Absolute Lymphocytes 2.1, Absolute Monocytes 0.6, Absolute Eosinophils 0.2, Absolute Basophils 0 Microbiology 02/03 2207 NASOPHARYN: Influenza Virus A & B Rapid Smear - COMP Assessment/Plan Assessment: Patient is a 62-year-old male with a PMH significant for HTN, HLD, hypothyroidism who presents complaining of left facial numbness and right sided facial droop. 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 Patient passed the swallow evaluation this morning however had nausea and vomitting after having crackers and juice. Symptoms controlled with zofran. No other symptoms. Patient has not had any events on telemetry. Patient's TSH (7.610) was elevated with low T4 (.65 ). Patient's LDL >154. Head CT and neck and brain CTA negative. EKG and trops have been negative thus far. Neurology recommendations are pending. MRI head tomorrow. Plan -Admit to telemetry floor -continuous telemetry monitoring -Serial neuro checks -Neurology consulted. Appreciate recommendations -MRI head -Synthroid increased from .125 to .150mg daily -Continue atorvastatin and aspirin daily -Zofran PRN for nausea/vomitting -Continue Prednisone -Hold antihypertensives, allow for permissive htn -Serial troponins and EKG -Echocardiogram pending -PT and OT evaluation DVT prophylaxis: Lovenox, ALPS CODE STATUS: Full code Diet: Regular diet Problem List: 1. Acute CVA (cerebrovascular accident) Pain Ratin Pain Location: n/a Pain Goal: Remain pain free Pain Plan: per pain pathway Tomorrow's Labs & Rationales: cbc bep Anabela SEXTON,Dora 12/16/17 1152: Attending MD Review Statement Attending Statement Attending MD Statement: examined this patient, discuss w/resident/PA/RECOVERY ADVOCATE, agreed w/resident/PA/RECOVERY ADVOCATE, reviewed EMR data (avail), discussed with nursing, discussed with case mgmt, amended to note Attending Assessment/Plan: Patient seen and examined. No issues overnight. He remains in sinus rhythm on telemetry monitoring. Complains of mild nausea this morning with no vomiting or abdominal pain. Reports regular bowel habits. On examination he has persistent right facial droop. He has loss of the right nasolabial fold and inability to green on that side. He is unable to close the right eyelid tightly against resistance. He is unable to wrinkle the right forehead. Extraocular muscle movement is intact. Pupils are equal and reactive to light. There is no visual field defect. Tongue is midline. He is able to shrug shoulders against resistance. Problem: 1. Right facial weakness with left-sided nystagmus. 2. Hypothyroidism with elevated TSH level. 3. 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 -Awaiting evaluation by the neurology service. -Has elevated lipid panel. Continue patient on Lipitor 40 mg orally daily. -Begin patient on antiemetic therapy with Zofran 4 mg orally every 8 hours as needed nausea/vomiting. -Increase Synthroid dose to 150 mcg daily. Repeat TSH level in 48-72 hours.
--- NOTE | 2017-12-16 14:23 | Cons- Neurology ---
General Information and HPI Consulting Request Date of Consult: 12/16/17 Requested By: Alesha Berrios MD History of Present Illness: 62-year-old male with multiple vascular risk factors presents with a 1 day history of right facial droop. He denied any premonitory retroauricular pain or rash. He does state that he had recently been treated for some discharge from the ear by his ENT physician. Chart reflects that on presentation the patient also describes some numbness on the left side of his face however that is unclear after my interview with him. He will admit that his balance is presently not normal although he denies vertigo, diplopia, dysarthria or dysphagia. Allergies/Medications Allergies: Coded Allergies: NO KNOWN ALLERGIES (05/14/11) Per ER nurse Zohra. -- Giselle 05/06/11 Home Med List: Cholecalciferol (Vitamin D3) (Vitamin D) (Unknown Strength) CAPSULE (Unknown Dose) PO DAILY SUPPLEMENT (Reported) Colesevelam HCl (Welchol) 3.75 GRAM POWD.PACK 1 PAC PO DAILY CHOLESTEROL ( Reported) mix with water, or juice Levothyroxine Sodium 125 MCG TABLET 1 TAB PO DAILY AC THYROID (Reported) Lisinopril 20 MG TABLET 1 TAB PO DAILY BP (Reported) Bone Gap-3 Fatty Acids (Bone Gap-3) (Unknown Strength) CAPSULE (Unknown Dose) PO DAILY SUPPLEMENT (Reported) Tamsulosin HCl 0.4 MG CAP.ER.24H 1 CAP PO DAILY PROSTATE (Reported) Ubidecarenone (Co Q-10) (Unknown Strength) CAPSULE (Unknown Dose) PO DAILY SUPPLEMENT (Reported) Review of Systems Review of Systems: Recent mild upper respiratory symptoms and transient discharge from the right ear there is been no recent head trauma, fever, chills, rash, diplopia, dysarthria, dysphagia, chest pain, shortness of breath, vertigo, joint inflammation or bleeding. He will also endorse some anxiety related symptomatology. Past History Travel History Traveled to [place] past 21 day No Medical History Neurological: NONE EENT: NONE Cardiovascular: hypertension, hyperlipidemia Respiratory: NONE Gastrointestinal: NONE Hepatic: NONE Renal: NONE Musculoskeletal: NONE Psychiatric: NONE Endocrine: hypothyroidism Blood Disorders: NONE Cancer(s): NONE CLERK ENTRY LEVEL/Reproductive: NONE Surgical History Surgical History: mastoid surgery Family History Relations & Conditions If Any: Relation not specified for: *No pertinent family history Psychosocial History Where Do You Live? Home Who Do You Live With? parent, brother Services at Home: None Primary Language: Korean Smoking Status: Current Everyday Smoker ETOH Use: denies use, heavy use Illicit Drug Use: denies illicit drug use, marijuana Functional Ability ADLs Independent: dressing, eating, toileting, bathing. Ambulation: independent Exam & Diagnostic Data Vital Signs and I&O Vital Signs Date Time Temp Pulse Resp B/P B/P Pulse O2 O2 Flow FiO2 Mean Ox Delivery Rate 12/16 0800 96 Room Air 12/16 0540 98.6 57 20 147/82 94 / 0414 97.5 58 18 157/70 96 Room Air 12/16 0300 98.1 64 16 157/75 98 Room Air 12/15 2305 56 16 157/72 94 Room Air 12/15 2024 98.0 56 18 157/77 98 Room Air 12/15 1902 58 16 142/88 95 Room Air 12/15 1821 98.4 65 16 163/86 96 Room Air 12/15 1819 Room Air 12/15 1729 97.2 72 18 190/78 98 Room Air Intake & Output 12/16 1600 12/16 0800 12/16 0000 Intake Total 200 0 Output Total Balance 200 0 Intake, IV 200 Intake, Oral 0 Patient 220 lb 220 lb Weight Weight Reported by Patient Measurement Method Middle-aged male who was awake, alert and in no acute distress. Higher cortical function was grossly intact. Speech was fluent. The head was normocephalic and atraumatic. Pupils were equal. Extraocular movements were full. There was reproducible left beating horizontal nystagmus. He had a right-sided lower motor neuron facial weakness with impaired brow wrinkle and eye closure. Hearing was grossly normal. Tongue was midline; there was no dysarthria. The motor examination showed no focal or lateralizing weakness. Deep tendon reflexes were symmetric. Plantar responses were flexor. Fine finger movements and rapid alternating movements were performed normally. He ambulated independently with a reasonably narrow base however had difficulty with tandem walk. CAT scan of the brain on admission showed no acute abnormalities. 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 I suspect that he has suffered a small brainstem stroke. Recommendations: We would recommend aspirin 81 mg and a statin. Physical therapy should be involved to assist with gait and balance and return him to his prior ambulatory status. A noncontrast MRI of the brain would be recommended. Please call with any further questions. Consult Acknowledgment - Thank you for your consult request.
[2017-12-16 16:01] VITALS: BP 152/70
[2017-12-17 00:37] VITALS: BP 148/78
[2017-12-17 07:05] VITALS: BP 158/82
--- NOTE | 2017-12-17 07:33 | PN- Housestaff ---
See Addendum Subjective Follow-up For: 1. Nielson's palsy 2. Chronic medical problems including hypothyroidism, hypertension, hyperlipidemia Tele-Events Since Last Visit: SB to SR: 57-70 Subjective: Patient was seen and examined today. Patient states that after he had blood drawn he started feeling nauseous. Patient denies any vomiting, headache, visual disturbances, numbness/tingling, weakness/paralysis, lightheadedness, dizziness, chest pain, shortness of breath abdominal pain, constipation/diarrhea , hematuria/dysuria. Review of Systems Constitutional: Reports: no symptoms. Cardiovascular: Reports: no symptoms. Respiratory: Reports: no symptoms. Gastrointestinal: Reports: nausea. Genitourinary: Reports: no symptoms. Musculoskeletal: Reports: no symptoms. Neurological/Psychological: Reports: other (facial droop). Objective Last 24 Hrs of Vital Signs/I&O Vital Signs Date Time Temp Pulse Resp B/P B/P Pulse O2 O2 Flow FiO2 Mean Ox Delivery Rate 12/17 1516 98.4 60 20 140/80 93 Room Air 12/17 1112 98.2 54 16 158/82 12/17 0705 98.2 54 20 158/82 93 Room Air 12/17 0037 98.0 79 20 148/78 92 Room Air Intake & Output 12/17 1600 12/17 0800 12/17 0000 Intake Total 480 210 720 Output Total Balance 480 210 720 Intake, IV 10 Intake, Oral 480 200 720 Number 0 Bowel Movements Physical Exam General Appearance: Alert, Oriented X3, Cooperative, No Acute Distress Other Physical Findings: Skin Temp/Moisture Exam: Warm/Dry HEENT: Atraumatic, PERRLA, EOMI, Mucous Membr. moist/pink Cardiovascular: Regular Rate, Normal S1, Normal S2 Lungs: Clear to Auscultation, Normal Air Movement Abdomen: Normal Bowel Sounds, Soft, No Tenderness Neurological: Normal Speech, Strength at 5/5 X4 Ext, Normal Tone, Sensation Intact, R sided facial droop, unable to fully close R eye or wrinkle forehead aviva, unable to close R eye fully, no tongue or uvular deviation, rightward nystagmus whith leftward gaze Extremities: No Clubbing, No Cyanosis, No Edema, Normal Pulses, No Tenderness/ Swelling Current Medications: Current Medications Sig/Sal Start time Last Medication Dose Route Stop Time Status Admin Acetaminophen 650 MG ONCE ONE 12/16 2114 DC 12/16 PO 12/16 2115 2105 Aspirin 81 MG DAILY 12/16 1000 DCD 12/17 PO 0946 Atorvastatin Calcium 80 MG 1700 12/16 0200 DCD 12/16 PO 1636 Enoxaparin Sodium 40 MG DAILY 12/16 1000 DCD 12/17 SC 0946 Levothyroxine Sodium 0.137 MG DAILY AC 12/18 0700 DCD PO Levothyroxine Sodium 0.15 MG DAILY AC 12/16 1350 DC 12/17 PO 0606 Lisinopril 20 MG DAILY 12/17 1000 DCD 12/17 PO 1112 Nicotine 14 MG DAILY 12/16 1117 DCD 12/17 TOP 0946 Prednisone 40 MG DAILY 12/16 0400 DC 12/16 PO 0925 Trimethobenzamide HCl 200 MG TIDPRN PRN 12/17 0830 DCD 12/17 IM 0946 Last 24 Hrs of Lab/[place] Results Last 24 Hrs of Labs/Mics: Laboratory Tests 12/17/17 0704: Anion Gap 10, Estimated GFR > 60, BUN/Creatinine Ratio 18.9, CBC w Diff NO MAN DIFF REQ, RBC 4.71, MCV 96.9 H, MCH 32.5 H, MCHC 33.5, RDW 15.2 H, MPV 10.6 H, Gran % 76.2 H, Lymphocytes % 14.7 L, Monocytes % 7.8, Eosinophils % 0.9, Basophils % 0.4, Absolute Granulocytes 11.3 H, Absolute Lymphocytes 2.2, Absolute Monocytes 1.2 H, Absolute Eosinophils 0.1, Absolute Basophils 0.1 Assessment/Plan Assessment: Patient is a 62-year-old male with a PMH significant for HTN, HLD, hypothyroidism who presents complaining of left facial numbness and right sided facial droop. 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 Patient had a run of 6 beats of Vtach overnight. Patient was asymptomatic. Patient's TSH (7.610) was elevated with low T4 (.65). Patient's levothyroxine was adjusted to 0.137mg daily. Patient's LDL >154 and was placed on atorvastatin. Head CT and neck and brain CTA negative. EKG and trops have been negative thus far. Patient's MRI today was negative. Unlikely patient had a stroke. 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 Patient was seen and evaluated by neurology. Patient will follow up with neurology and ENT upon discharge. Patient instructed to use Lacri-lube ointment in R eye and compressive eye patch. Plan -Admit to telemetry floor -continuous telemetry monitoring -Serial neuro checks -Neurology consulted. Appreciate recommendations -MRI head -Synthroid changed to 0.137. Should follow up with PCP for monitoring and repeat TSH levels in 6-8weeks. -Continue atorvastatin and aspirin daily -Tigan PRN for nausea/vomitting -Restarted home antihypertensives DVT prophylaxis: Lovenox, ALPS CODE STATUS: Full code Diet: Regular diet Problem List: 1. Nielson's palsy 2. Hypothyroidism Pain Ratin Pain Location: n/a Pain Goal: Remain pain free Pain Plan: n/a Tomorrow's Labs & Rationales: none - discharge today
[2017-12-17 08:10] LABS: ABSOLUTE BASOPHIL COUNT 0.1 /CUMM (0.0-0.2); ABSOLUTE EOSINOPHIL COUNT 0.1 /CUMM (0.0-0.7); ABSOLUTE GRANULOCYTE CT 11.3 /CUMM (1.4-6.5); ABSOLUTE LYMPH COUNT 2.2 /CUMM (1.2-3.4); ABSOLUTE MONOCYTE COUNT 1.2 /CUMM (0.10-0.60); BASOPHIL % 0.4 % (0.0-2.0); EOSINOPHIL % 0.9 % (0-5); GRANULOCYTE % 76.2 % (42.2-75.2); HEMATOCRIT 45.7 % (42-52); MEAN CORPUSCULAR HGB 32.5 PG (27.0-31.0); MEAN CORPUSCULAR HGB CONC 33.5 G/DL (33.0-37.0); MEAN CORPUSCULAR VOLUME 96.9 FL (80.0-94.0); MEAN PLATELET VOLUME 10.6 FL (7.4-10.4); PLATELET COUNT 185 /CUMM (130-400); RBC DISTRIBUTION WIDTH 15.2 % (11.5-14.5); RED BLOOD CELL CT 4.71 /CUMM (4.70-6.10); WHITE BLOOD CELL COUNT 14.9 /CUMM (4.8-10.8)
--- NOTE | 2017-12-17 12:32 | MRI REPORT ---
EXAMINATION: MR BRAIN WITHOUT CONTRAST CLINICAL INFORMATION: Right facial droop. Rule out acute intracranial pathology. COMPARISON: CT from 12/15/2017. TECHNIQUE: Multiplanar, multisequence imaging of the brain was performed without contrast. FINDINGS: No diffusion abnormalities are identified to suggest an acute or subacute infarct. The ventricles are normal in size. No mass effect or midline shift is seen. No brain parenchymal signal abnormality is noted. No extra-axial fluid collections are seen. The brainstem and cerebellum are normal. The gradient refocused acquisition is normal. The craniovertebral junction, marrow signal, and midline structures are normal. The major intracranial flow voids at the level of the [place] of [place] are preserved. The dural venous sinus flow voids are maintained. There is partial fluid opacification of the left mastoid air cells. There is a mastoidectomy defect on the right side with nonspecific soft tissue in the mastoidectomy bowl. There is a small retention cyst along the floor of the right maxillary antrum. IMPRESSION: No acute intracranial process. Normal MRI of the brain. Nonspecific soft tissue in the right mastoidectomy bowl which may reflect scar and granulation material, however, the possibility of a recurrent cholesteatoma cannot be ruled out; clinically correlate.
--- NOTE | 2017-12-17 12:46 | PN- Neurology ---
Subjective Subjective: Still queasy however no new significant complaints. Has been out of bed. Objective Vital Signs and I&Os Vital Signs Date Time Temp Pulse Resp B/P B/P Pulse O2 O2 Flow FiO2 Mean Ox Delivery Rate 12/17 1112 98.2 54 16 158/82 02/05 0705 98.2 54 20 158/82 93 Room Air 12/17 0037 98.0 79 20 148/78 92 Room Air 12/16 1601 97.8 83 20 152/70 91 Intake & Output 12/17 1600 12/17 0812/17 0000 12/16 1600 12/16 0800 12/16 0000 Intake Total 210 720 640 200 0 Output Total Balance 210 720 640 200 0 Intake, IV 10 400 200 Intake, Oral 200 720 240 0 Number 0 Bowel Movements Patient 220 lb 220 lb Weight Weight Reported by Patient Measurement Method Awake and alert. In no acute distress. Left beating horizontal nystagmus less evident. A right lower motor neuron facial paresis remains. Speech is fluent. No appendicular weakness. Fine finger movements intact. No ataxia on finger-to -nose testing. MRI of the brain was found to be normal. There is no evidence of stroke in the brainstem. Comment was made in regard to possible recurrent cholesteatoma. Current Medications: Current Medications Sig/Sal Start time Last Medication Dose Route Stop Time Status Admin Acetaminophen 650 MG ONCE ONE 12/16 2114 DC 12/16 PO 12/16 Aspirin 81 MG DAILY 12/16 1000 AC 12/17 PO 0946 Atorvastatin Calcium 80 MG 1700 12/16 0200 AC 12/16 PO 1636 Enoxaparin Sodium 40 MG DAILY 12/16 1000 AC 12/17 SC 0946 Levothyroxine Sodium 0.137 MG DAILY AC 12/18 0700 AC PO Levothyroxine Sodium 0.15 MG DAILY AC 12/16 1350 DC 12/17 PO 0606 Lisinopril 20 MG DAILY 12/17 1000 AC 12/17 PO 1112 Nicotine 14 MG DAILY 12/16 1117 AC 12/17 TOP 0946 Ondansetron HCl 4 MG ONCE PRN 12/16 1400 DC 12/16 IV 1637 Prednisone 40 MG DAILY 12/16 0400 DC 12/16 PO 0925 Sodium Chloride 1,000 ML Q10H 12/16 0300 DC 12/16 IV 12/16 1259 0320 Trimethobenzamide HCl 200 MG TIDPRN PRN 12/17 0830 AC 12/17 IM 0946 Assessment/Plan Assessment: #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 Unclear as to whether there is an association between his inner ear issue and his seventh nerve mononeuropathy. Plan: Suggest reconsultation with ENT prior to his previously scheduled 3 month follow -up. He should be discharged with instructions for eye care, i.e. Lacri-Lube ointment at night and drops during the day.We would be happy to reevaluate him in the office in 3-4 weeks.
--- NOTE | 2017-12-17 14:31 | Patient Discharge Instructions ---
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 Please follow-up with ENT and Neurology within 1 week of discharge. 2. Please follow up with your pcp within 1 week of discharge. 3. Please obtain a compressive eye patch and lacri-lube. These can be obtained over the counter. Please cover your right eye with the compression dressing and use Lacri-Lube ointment at night and artificial tear drops during the day. 4. Please note your thyroid medication was increased and you will need repeat blood work in a few weeks. 5. Please follow up with your pcp regarding your irregular heart beat Activity Full Activity/No Limits: No Activity Self Limited: Yes Acute Coronary Syndrome Inclusion Criteria At DC or during hospital stay patient has or had the following: ACS DIAGNOSIS No Discharge Core Measures Meds if any: Prescribed or Continued at Discharge Meds if any: NOT Prescribed or Continued at Discharge Congestive Heart Failure Inclusion Criteria At DC or during hospital stay patient has or had the following: CHF DIAGNOSIS No Discharge Core Measures Meds if any: Prescribed or Continued at Discharge Meds if any: NOT Prescribed or Continued at Discharge Cerebrovascular accident Inclusion Criteria At DC or during hospital stay patient has or had the following: CVA/TIA Diagnosis No Discharge Core Measures Meds if any: Prescribed or Continued at Discharge Meds if any: NOT Prescribed or Continued at Discharge Venous thromboembolism Inclusion Criteria VTE Diagnosis No VTE Type NONE VTE Confirmed by (Test) NONE Discharge Core Measures - Per Current guidelines, there needs to be overlap - treatment for the first 5 days of Warfarin therapy. - If discharged on Warfarin prior to 5 days of - overlap therapy, the patient will need to be - assessed for post discharge needs including - *Post discharge parental anticoagulation - *Warfarin and/or parental anticoagulation education - *Follow up date to check INR post discharge At least 5 days overlap therapy as Inpatient No Meds if any: Prescribed or Continued at Discharge Note: Overlap Therapy is Warfarin and Anticoagulant Meds if any: NOT Prescribed or Continued at Discharge
[2017-12-17] MEDS ORDERED: LEVOTHYROXINE137 MCG PO ×2 (14:37→15:59)
[2017-12-17 15:16] VITALS: BP 140/80
[2017-12-17] MEDS ORDERED: OMEPRAZOLE20 M2 PO ×2 (15:39→15:59)
[2017-12-17] MEDS ORDERED: TIGAN300 MG PO ×3 (15:39→15:59)
--- NOTE | 2017-12-17 16:23 | Discharge Summary ---
Visit Information Visit Dates Admission Date: 12/15/17 Discharge Date: 12/17/17 Hospital Course Course Attending Physician: Carson Lamar MD Primary Care Physician: Toshia SEXTON,Darryl Maria Consulting Request: Consulting Specialty: Neurology Consulting Physician: Dr. Mondragon Hospital Course: Patient is a 62-year-old male with a PMH significant for HTN, HLD, hypothyroidism who presents with chief complaint of 1 day of left facial numbness and right sided facial droop. On admission: VITALS: Afebrile, pulse 72, RR 18, blood pressure 190/78, saturating 95% on room air LABS: WBC 10.3, hemoglobin 15.3, hematocrit 47.0, platelet 181, MCV 96.8, neutrophils 70%, lymphocytes 20%, sodium 146, potassium 4.3, chloride 105, bicarbonate 28, BUN 17, creatinine 0.9, glucose 100, calcium 9.4, LFT unremarkable, troponin less than 0.01 ECG: No acute changes IMAGING: CT head:No acute intracranial process seen CTA head and neck: Unremarkable Right mastoidectomy changes. There is a moderate soft tissue density in the right mastoid sinus likely recurrent inflammatory change or postop which could attribute to right facial weakness or droop. Correlate clinically and surgical history. Patient was admitted to the telemetry floor for management of the followin. Nielson's Palsy Patient presented with right sided facial weakness and droop with left sided numbness, nystagmus and ataxia. Based on patient's symptoms he was worked up for possible stroke which was ruled out with negative head CT and negative MRI. Patient had a negative CTA head and neck. Patient was placed on aspirin and atorvastatin initially. Patient was evaluated by neurology. 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 Patient is unable to completely close his right eye. * Patient discharged with instructions to follow up with neurology and ENT. * Patient instructed to use compressive eye patch with Lacri-lube ointment in R eye nightly and artificial tears during the day. * Patient to follow up with outpatient physical therapy. 2. Hypothyroidism Patient's TSH was elevated to 7.610 with low T4. * Patient discharged on increased dose of levothyroxine of 0.137mg daily. * Patient should have repeat TSH level checked in 6 to 8 weeks. 3. Nausea and vomitting Patient during admission had nausea and vomitting which was controlled initially with Zofran and then Tigan due to QTc prolongation. Patient's symptoms may be secondary to starting high dose atorvastatin. Atorvastatin was not continued. * Patient discharged with Tigan 300mg TID PRN. * Patient discharged with Omeprazole 20mg daily. 4. Cardiac arrhythmia Patient had 1 run of 6 beats of vtach. Patient remained asymptomatic. * Further evaluation with holter monitor should be considered on an outpatient basis with cardiology follow up. 5. Hyperlipidemia Patient had elevated lipid profile with LDL of 154. Patient was initially placed on atorvastatin which he appeared to not tolerate well. Patient's ASCVD score indicates a 13.0% risk of cardiovascular event in the next 10 years. * Based on patient's ASCVD score > 7.5% he should be placed on a moderate to high intensity statin. This should be addressed at the discretion of his pcp once patient's nausea subsides over the next few weeks. 6. History of HTN Patient's antihypertensives were initially held in the setting of possible stroke allowing for permissive hypertension. Afterwhich patient's home medications were continued. No changes were made this admission. * Continue home medications. Allergies: Coded Allergies: NO KNOWN ALLERGIES (05/14/11) Per ER nurse Zohra. -- Giselle 05/06/11 Pertinent Lab Results: SERVICE DATE: 12/15/17 EXAM TYPE: CAT - CT HEAD WO IV CONTRAST EXAMINATION: CT HEAD WITHOUT CONTRAST CLINICAL INFORMATION: Right-sided facial droop. COMPARISON: None TECHNIQUE: Contiguous axial imaging was performed from the skull base to vertex without intravenous administration of contrast. DLP: 620 mGy-cm FINDINGS: There is no evidence of acute intracranial hemorrhage or territorial infarction. No abnormal mass effect or midline shift is seen. Woods to white matter differentiation is well preserved. No extra-axial fluid collections are identified. The ventricles are normal in size. There is no abnormal attenuation within the brain parenchyma. The osseous structures and soft tissues are normal. There is a right mastoidectomy changes with soft tissue density likely postop. No fluid is seen in the right middle ear. The left mastoid sinus and rest of the paranasal sinuses are well-aerated. IMPRESSION: No acute intracranial process seen. SERVICE DATE: 12/15/17 EXAM TYPE: CAT - CT HEAD ANGIOGRAM; CT NECK ANGIOGRAM EXAMINATION: CTA HEAD AND CTA NECK WITH CONTRAST. CLINICAL INFORMATION: Right facial droop. COMPARISON: CT brain 12/15/2017 performed at 5:41 PM. TECHNIQUE: Following intravenous administration of 100 mL Optiray 320, CTA neck and brain was obtained. Multiple within sagittal and coronal and 3-D reconstructions of neck and brain were obtained. DLP 465. FINDINGS: CTA NECK: The thoracic aorta is of normal caliber without any aneurysmal dilatation. Visualized pulmonary artery appears normal caliber as well. There is normal branching of thoracic arch into right brachiocephalic, left common and left subclavian arteries which are widely patent. Mild atherosclerotic calcification seen at the origin of these branches but no narrowing noted. The right common carotid artery is widely patent. There is mild atherosclerotic calcified plaque at the origin of right common carotid artery but widely patent. Carotid bulb, right internal and external carotid arteries are patent throughout the neck. The left common carotid artery, and the bifurcation appears widely patent. There is atherosclerotic calcification left carotid bulb and proximal ICA without significant stenosis. The left internal carotid artery is widely patent in the neck. Both vertebral arteries are codominant and patent at the origin and throughout the course in the neck. CTA BRAIN: Both vertebral arteries merge into basilar artery which appears normal caliber. The basilar artery terminates in symmetrical posterior cerebral artery. The superior cerebellar arteries are widely patent. There is a single left posterior inferior cerebellar artery which appears patent. Anteriorly both internal carotid arteries are patent through the petrous, cavernous and supraclinoid segments and bifurcates normally into anterior and middle cerebral arteries. They appear symmetrical. Both middle cerebral arteries bifurcate into anterior and middle temporal branches. There is no atherosclerotic narrowing, thrombosis or asymmetry in the vascular filling. The peripheral capillary filling appears symmetrical and normal. No avascular zone is seen. There is no evidence of aneurysm or AV malformation. CT NECK: Visualized lung apices are clear. No abnormality seen in the superior mediastinum. The central trachea is widely patent. There is a subtle hypodensity or artifact seen in the right mid thyroid lobe. Otherwise the thyroid glands are symmetrical. Visualized bilateral submandibular and parotid glands are symmetrical. Small shotty lymph nodes are seen in the neck. No abnormal mass seen. Both jugular veins are nonopacified but appear codominant. There is degenerative arthritic changes throughout cervical spine with loss of disc height C3-C4 through C6-C7 disc levels. No maxillofacial or nasal bony abnormality seen. There is a polyp or retention cyst right maxillary sinus. Rest of the paranasal sinuses are clear. There is right mastoidectomy changes with soft tissue thickening. Mild opacified remaining right mastoid sinuses seen. The left mastoid sinus is clear. CT BRAIN: There is no enhancing mass or mass effect. No edema seen. No midline shift. The lateral ventricles are symmetrical and normal. IMPRESSION: Unremarkable CTA neck and CTA brain. Right mastoidectomy changes. There is a moderate soft tissue density in the right mastoid sinus likely recurrent inflammatory change or postop which could attribute to right facial weakness or droop. Correlate clinically and surgical history. Moderate size polyp or retention cyst right maxillary sinus. No enhancing mass in the brain or or neck or abnormal lymphadenopathy in the neck SERVICE DATE: 12/17/17- EXAM TYPE: MRI - MRI-HEAD W/O MANGO EXAMINATION: MR BRAIN WITHOUT CONTRAST CLINICAL INFORMATION: Right facial droop. Rule out acute intracranial pathology. COMPARISON: CT from 12/15/2017. TECHNIQUE: Multiplanar, multisequence imaging of the brain was performed without contrast. FINDINGS: No diffusion abnormalities are identified to suggest an acute or subacute infarct. The ventricles are normal in size. No mass effect or midline shift is seen. No brain parenchymal signal abnormality is noted. No extra-axial fluid collections are seen. The brainstem and cerebellum are normal. The gradient refocused acquisition is normal. The craniovertebral junction, marrow signal, and midline structures are normal. The major intracranial flow voids at the level of the [place] are preserved. The dural venous sinus flow voids are maintained. There is partial fluid opacification of the left mastoid air cells. There is a mastoidectomy defect on the right side with nonspecific soft tissue in the mastoidectomy bowl. There is a small retention cyst along the floor of the right maxillary antrum. IMPRESSION: No acute intracranial process. Normal MRI of the brain. Nonspecific soft tissue in the right mastoidectomy bowl which may reflect scar and granulation material, however, the possibility of a recurrent cholesteatoma cannot be ruled out; clinically correlate. Disposition Summary Disposition Principal Diagnosis: Nielson's Palsy Additional Diagnosis: R/O Stroke, Hypothyroidism, Cardiac Arrhythmia, Hyperlipidemia Discharge Disposition: home or self care Discharge Instructions General Discharge Information Code Status: Full Code Patient's Diet: Heart Healthy Patient's Activity: Self-Limited Follow-Up Instructions/Appts: 1. Please follow-up with ENT and Neurology within 1 week of discharge. 2. Please follow up with your pcp within 1 week of discharge. 3. Please obtain a compressive eye patch and lacri-lube. These can be obtained over the counter. Please cover your right eye with the compression dressing and use Lacri-Lube ointment at night and artificial tear drops during the day. 4. Please note your thyroid medication was increased and you will need repeat blood work in a few weeks. 5. Please follow up with your pcp regarding your irregular heart beat Medications at Discharge Discharge Medications: Stop taking the following medications: Levothyroxine Sodium (Levothyroxine Sodium) 125 MCG TABLET ORAL DAILY BEFORE BREAKFAST Qty = 90 Continue taking these medications: Lisinopril (Lisinopril) 20 MG TABLET 1 Tablet ORAL DAILY Qty = 90 Comments: Last Taken: 12/17/17 Time: 11:12 am Colesevelam HCl (Welchol) 3.75 GRAM POWD.PACK 1 Packet ORAL DAILY Qty = 90 Instructions: mix with water, or juice Comments: Not given in hospital [place]-3 Fatty Acids ([place]-3) (Unknown Strength) CAPSULE Unknown Dose ORAL DAILY Comments: Not given in hospital Cholecalciferol (Vitamin D3) (Vitamin D) (Unknown Strength) CAPSULE Unknown Dose ORAL DAILY Comments: Not given in hospital Ubidecarenone (Co Q-10) (Unknown Strength) CAPSULE Unknown Dose ORAL DAILY Comments: Not given in hospital Tamsulosin HCl (Tamsulosin HCl) 0.4 MG CAP.ER.24H 1 Capsule ORAL DAILY Qty = 30 Comments: Not given in hospital Start taking the following new medications: Levothyroxine Sodium (Levothyroxine Sodium) 137 MCG TABLET 0.137 Milligram ORAL DAILY BEFORE BREAKFAST Qty = 30 No Refills Instructions: . Comments: 150 mcg given in hospital Last Taken: 12/17/17 Time: 06:06 am Omeprazole (Omeprazole) 20 MG CAPSULE.DR 1 Capsule ORAL DAILY Qty = 14 No Refills Instructions: . Comments: Not given in hospital Trimethobenzamide HCl (Tigan) 300 MG CAPSULE 1 Tablet ORAL THREE TIMES A DAY NEEDED Qty = 15 No Refills Instructions: . Comments: 200 mg IM given in hospital Last Taken: 12/17/17 Time: 09:46 am Copies To: Toshia SEXTON,Darryl Maria Attending Review Statement Documenting Attending: Carson Lamar MD Other Findings: The patient was seen and discussed with house staff. Appreciate neurology input. Agree with plan of care upon discharge. Will need Neurology follow-up for Nielson's Palsy, ENT follow-up for dysequilibrium, and PCP will need to arrange OP cardiac evaluation (1 - 6 beat run asymptomatic Vtach- may benefit from Holter/ECHO).
--- NOTE | 2017-12-19 11:18 | ECHOCARDIOGRAM REPORT ---
ABHIJEET GROVES Age: 62 : 1955 Gender: M Exam Date: 12/17/2017 14:47 Exam Location: [address] Ht (in): 67 Wt (lb): 220 BSA: 2.21 BP: 150 / 82 Ordering Physician: Vanessa Florez MD Referring Physician: Vanessa Florez MD Technologist: Altagracia Hayes [facility] Room Number: 177 Indications: STROKE Rhythm: Sinus Technical Quality: Fair FINDINGS Left Ventricle Normal size left ventricle. No obvious regional wall motion abnormalities. Normal left ventricular ejection fraction estimated at 55-60%. Right Ventricle Right ventricle not well visualized, grossly normal. Right Atrium Normal right atrial size. Left Atrium Mild left atrial dilatation. Mitral Valve Mitral valve thickened. Mitral annular calcification. Trace mitral regurgitation. Aortic Valve Trileaflet aortic valve. Diffuse thickening (sclerosis) of the aortic valve cusps without reduced excursion. No aortic stenosis. Trace aortic regurgitation. Tricuspid Valve Tricuspid valve not well visualized, grossly normal. Trace to mild tricuspid regurgitation. Right ventricular systolic pressure estimated at 28 mmHg. Pulmonic Valve Structurally normal pulmonic valve. Trace pulmonic regurgitation. Pericardium No pericardial effusion. Great Vessels Normal size aortic root and proximal ascending aorta. CONCLUSIONS 1. Minimal to mild aortic sclerosis is present with trivial aortic insufficiency. 2. Mitral leaflet thickening is present with minimal anular calcification and minimal mitral insufficiency with mild left atrial enlargement. 3. There is no pericardial fluid present. 4. The left ventricular chamber size and systolic function are normal with no resting wall motion abnormalities. 5. Minimal to mild tricuspid insufficiency is present with minimal pulmonic insufficiency and no evidence of pulmonoary hypertension. Suellen Valencia M.D. (Electronically Signed) Final Date: 19 December 2017 11:17 MEASUREMENTS (Male / Female) Normal Values 2D ECHO LV Diastolic Diameter PLAX 4.7 cm 4.2 - 5.9 / 3.9 - 5.3 cm LV Systolic Diameter PLAX 3.4 cm 2.1 - 4.0 cm LV Fractional Shortening PLAX 27.7 % 25 - 46 % LV Ejection Fraction 2D Teich 53.7 % IVS Diastolic Thickness 1.3 cm LVPW Diastolic Thickness 1.3 cm LV Relative Wall Thickness 0.6 RV Internal Dim ED PLAX 3.1 cm 1.9 - 3.8 cm LVOT Diameter 2.1 cm Aortic Root Diameter 2.9 cm LA Systolic Diameter LX 4.0 cm 3.0 - 4.0 / 2.7 - 3.8 cm LA Volume 45.0 cm 18 - 58 / 22 - 52 cm Ascending Aorta Diameter 3.6 cm DOPPLER AV Peak Velocity 145.0 cm/s AV Peak Gradient 8.4 mmHg AV Mean Velocity 99.5 cm/s AV Mean Gradient 4.0 mmHg AV Velocity Time Integral 32.2 cm LVOT Peak Velocity 107.0 cm/s LVOT Peak Gradient 4.6 mmHg LVOT Mean Velocity 73.3 cm/s LVOT Mean Gradient 2.0 mmHg LVOT Velocity Time Integral 24.8 cm LVOT Stroke Volume 85.9 cm AV Area Cont Eq vti 2.7 cm AV Area Cont Eq pk 2.6 cm MV Peak Velocity 86.9 cm/s MV Peak Gradient 3.0 mmHg MV Mean Velocity 51.8 cm/s MV Mean Gradient 1.0 mmHg Mitral E Point Velocity 83.9 cm/s Mitral A Point Velocity 58.2 cm/s Mitral E to A Ratio 1.4 MV PHT Velocity 93.0 cm/s MV Deceleration [place] 243.0 cm/s MV Pressure Half Time 114.8 ms MV Area PHT 1.9 cm MV Deceleration Time 208.0 ms TR Peak Velocity 243.0 cm/s TR Peak Gradient 23.6 mmHg Right Atrial Pressure 5.0 mmHg Pulmonary Artery Systolic Pressu 28.6 mmHg Right Ventricular Systolic Press 28.6 mmHg PV Peak Velocity 84.1 cm/s PV Peak Gradient 2.8 mmHg PV Mean Velocity 62.6 cm/s PV Mean Gradient 2.0 mmHg PV Velocity Time Integral 23.0 cm LV E' Lateral Velocity 8.7 cm/s Mitral E to LV E' Lateral Ratio 9.7 LV E' Septal Velocity 6.4 cm/s Mitral E to LV E' Septal Ratio 13.0
== END 2017-12-17 16:10 | DRG 74 ==
LOC: ERH 17:14 → ERHI 20:43 → 1NO 20:43 → ENRESERV 12-16 03:14 → 1NO 12-16 05:32 → ENTRNSPT 12-17 16:39 → EDTRNSPT 12-17 16:43 → EDTRNSPTSTS 12-17 16:43 → CMPTRNSPT 12-17 16:56
PROVIDERS: Internal Medicine; Student in an Organized Health Care Education/Training Program
DX: G51.0 Bell's palsy (principal); I47.2 Ventricular tachycardia; E03.9 Hypothyroidism, unspecified; E11.9 Type 2 diabetes mellitus without complications; H71.90 Unspecified cholesteatoma, unspecified ear; R27.0 Ataxia, unspecified; F17.200 Nicotine dependence, unspecified, uncomplicated; Z72.89 Other problems related to lifestyle; I10 Essential (primary) hypertension; E78.5 Hyperlipidemia, unspecified
CPT/HCPCS: 1NP; 70551; ERO; 36415; 80307; 81001; 82436; 87804; 87804-59; 93005; 93010; 97165-GO; J1650; J2405; J3250; J3490